=== PATIENT | male | born 1960 | race Caucasian/White ===

== ENCOUNTER 2021-05-15 19:42 | Emergency (ER) | payer BC, OTHER ==
[~2021-05-15] VITALS: Ht 170.2 cm; Wt 88.5 kg
[2021-05-15] MEDS ORDERED: ULTRAM 50MG TAB50 MG PO (21:56)
[2021-05-15] MEDS ORDERED: METHOCARBAMOL500 M2 PO (22:00)
[2021-05-15 22:31] VITALS: BP 117/79
== END 2021-05-15 22:35 | disposition home or self-care (01) ==
LOC: ER 19:42
DX: M79.652 Pain in left thigh (principal); Z87.442 Personal history of urinary calculi; Z98.890 Other specified postprocedural states; Z88.1 Allergy status to other antibiotic agents; Z88.6 Allergy status to analgesic agent; Z88.8 Allergy status to other drugs, medicaments and biological substances